=== PATIENT | female | born 1995 | race Two or more races ===

== ENCOUNTER → 2019-06-21 | Outpatient (REF) | payer OTHER | LOC: M SFHCLERA 12:56 | PROVIDERS: ATTEND Nurse Practitioner Family | DX: J02.9 Acute pharyngitis, unspecified (principal) ==

== ENCOUNTER 2019-08-11 16:18 | Inpatient (IN) | payer OTHER ==
[2019-08-11] VITALS (7 sets, daily range): BP systolic 120–148; BP diastolic 65–86
[~2019-08-11] VITALS: Ht 170.2 cm; Wt 92.8 kg
[2019-08-11] MEDS ORDERED: PRENTAB9 PO (16:37)
[2019-08-11] MEDS ORDERED: OXYTOCIN 30 UNITS IN 0.9% NaCl 500ML IV BAG (J2590) As Ordered ONE (16:51)
[2019-08-11] MEDS ORDERED: OXYTOCIN DRIP 30 UNITS in IV 1 EA IV SCH (17:20)
--- NOTE | 2019-08-11 17:28 | DNPDOC ---
[facility] Delivery Note Delivery Note DATE OF DELIVERY: 11 August 2019 PREDELIVERY DIAGNOSIS: 38w6d in active labor with history of prior section POST DELIVERY DIAGNOSIS: Delivered. PROCEDURE: vaginal after prior section PHYSIOLOGY TEACHER: Dr. Arianna Valentin MD ANESTHESIA: none ESTIMATED BLOOD LOSS: 200 mL. FINDINGS: 8 pound 11 ounce (3950g) male infant, Score 8/9, nuchal cord times 1 DELIVERY SUMMARY: Yudelka is a 24yo [id number] s/p uncomplicated at 1655 on 08/11/2019 after presenting at 9cm at 38w6d. AROM was performed with clear fluid noted, and patient then began pushing within 2 more contractions. 's head delivered OA, restituted MIKE. One nuchal cord reduced. Right anterior shoulder delivered followed by posterior shoulder and corpus. Infant was vigorous with spontaneous cry, placed on maternal abdomen and cord was clamped x2 and cut by FOB after approximately 2 minutes. Infant's nose and mouth were suctioned with bulb suction. Apgars 8/9. With traction on the umbilical cord and uterine massage, placenta delivered spontaneously and intact with 3 vessel centrally inserted cord. There were some trailing membranes that were slowly teased out with ring forceps and were removed intact. More uterine massage was performed and fundus was then firm at u-2cm. Inspection of perineum and vagina revealed small eufemia at the vaginal introitus at 6 o'clock, reapproximated with 4-0 vicryl in a figure of 8. Total hemostasis noted. All counts correct x2. Mom and infant were doing well when I left the room. MD Homero Elizondo Katrina D MD Aug 11, 2019 17:24
[2019-08-11] MEDS ORDERED: IBUPROFEN 800 MG TAB PO PRN (17:30)
[2019-08-11] MEDS ORDERED: ACETAMINOPHEN TAB 650MG DOSE (2X325MG) PO PRN (17:30)
[2019-08-11] MEDS ORDERED: RHOGAM 300 MCG (1500 IU) INJ (J2790) IM SCH (17:30)
[2019-08-11] MEDS ORDERED: DOCUSATE SODIUM 100 MG CAP PO PRN (17:30)
[2019-08-11] MEDS ORDERED: IBUPROFEN 600 MG TAB PO PRN (17:30)
[2019-08-11] MEDS ORDERED: ACETAMINOPHEN 500 MG TAB PO PRN (17:30)
[2019-08-11] MEDS ORDERED: MEASLES,MUMPS,RUBELLA VACCINE INJ (MMR-II) (90707) SC SCH (17:30)
[2019-08-11] MEDS ORDERED: DIBUCAINE 1% OINTMENT 30GM TOP PRN (17:30)
--- NOTE | 2019-08-11 17:43 | HPEPDOC ---
Obstetrical History & Physical General Date of Admission Aug 11, 2019 at 16:51 History of Present Illness Yudelka is a 24yo with SIUP at 38w6d by lmp c/w 9wk u/s presenting after sunday all last night and today. She states ctx became much stronger and closer over the past couple hours. Good movement. No LOF. No vaginal bleeding. Chief Complaint: Contractions, term Information Provided By: Patient Care Care: Good Care Dating Final EDC by: LMP, 1st trimester (US) Antepartum Course Diagnos(e)s hx of section in 2016 followed by successful 2018, excessive weight gain 58lb Height (inches): 67 Pre- weight (lbs.): 145 Admission Weight (lbs.): 203 Change in Weight (lbs.): 58 Past Medical History Past Obstetrical History : Past Obstetrical History: Multigravida (2016 PLTCS at 40wk for arrest of descent 8lb4oz F, 2018 at 39wk 6ib33um F) MANAGER WIND History: No pertinent history Past Medical History Medical History Benign Surgical History: section, Tonsilectomy, [place] teeth Family History Significant Family History: No pertinent family hx Social History Marital Status: Family situation: Spouse/partner home Psychosocial History: No pertinent psych hx * Smoker: non-smoker Alcohol: Denies Drugs: denies Imunizations Tdap status: current Influenza Status: current Allergies Coded Allergies: No Known Allergies (Unverified , 08/11/19) Medications Scheduled No.137/Iron/Folic Acd ( Vitamin Tablet) 1 Each Tablet, 1 TAB PO DAILY Physical Examination Physical Examination GENERAL: Alert and oriented times three. ABDOMEN: Gravid and non-tender to touch. FETUS: Is vertex (VTX) by sterile vaginal examination (SVE) EXTREMITIES: No edema Vital Signs/I&O Vital Signs Date Time Temp Pulse Resp B/P (MAP) Pulse Ox O2 Delivery O2 Flow Rate FiO2 08/11/19 16:31 99.6 100 18 132/75 (94) 99.6 Laboratory Data 24H LABS Laboratory Tests 2 08/11/19 16:54: Serology Scanned Report Hepatitis B Testing Pertinent Laboratoy Data Blood Type: A+ RBC Antibody Screen: Negative HIV: Negative Hepatitis B: Negative Rapid Plasma Reagin: Nonreactive Rubella: Immune Varicella: Immune Chlamydia/Gonorrhea: Negative Group B Streptococcus: Negative Quad Screen Test: Negative ([id number] wnl ) Glucose Tolerance Test: 122 Anatomy Ultrasound Ultrasound Date: Apr 03, 2019 Normal Anatomy: Yes Placenta Previa: No Steroid Therapy Steroid Therapy: No Vaginal Examination Dilation: 9 cm Effacement: 100% Station: -2 Cervical Consistency: Soft Cervical Position: Anterior Presentation: Cephalic presentation Assessment Heart Rate (FHR): 130 Variability: Moderate Accelerations: Positive Decelerations: None Tocometer Contractions: Yes Frequency: regular Duration: less than 60 seconds Strength: palpated as strong Assessment/Plan Assessment Yudelka is a 24yo with SIUP at 38w6d by lmp c/w 9wk u/s in active labor w/SCE 9/C/-2. AROM performed with first exam, clear fluid noted. Reassuring status. Ctx q2-3min. Vitals wnl, benign exam. GBS negative. course/PMhx significant for hx of section in 2016 followed by successful 2018, excessive weight gain 58lb Plan Admit and orient. Java Developer Consultant and consent. Patient has prior successful and desires another vaginal delivery. Previously counseled on r/b/a. Diet: clear liquids Group B Streptococcus (GBS) negative Labs and intravenous (IV) per unit protocol. Anticipate normal spontaneous delivery () MD Homero Elizondo Katrina D MD Aug 11, 2019 17:43
[2019-08-11 18:26] LABS: HEMATOCRIT 42.2 % (36.0-47.0); MEAN CORPUSCULAR HEMOGLOBIN 32.8 pg (27.0-33.0); MEAN CORPUSCULAR HGB CONC 33.2 g/dl (32.0-36.5); MEAN CORPUSCULAR VOLUME 98.8 fl (80.0-96.0); PLATELET COUNT, AUTOMATED 150 10^3/uL (150-450); RED BLOOD COUNT 4.27 10^6/uL (4.00-5.40)
[2019-08-12 05:33] VITALS: BP 118/68
[2019-08-12] MEDS ORDERED: PRENATAL VITAMINS CHEWABLE TABLET PO SCH (09:00)
--- NOTE | 2019-08-12 10:32 | IPNPDOC ---
Progress Note Date of Service: Aug 12, 2019 Day#: 1 Progress Note PPD 1 SUBJECT: Yudelka is a 24yo [id number] s/p uncomplicated after presenting at 9cm dilation, doing well day # 1. She has been ambulating, voiding spontaneously without issue and tolerating regular diet. Breast feeding without issue. Reports lochia is like a normal period. No f/c/n/v/CP/SOB. OBJECTIVE: VITAL SIGNS: Within normal limits, afebrile. Alert and oriented times three. Abdomen: Fundus firm at U-2. Soft, NTTP. Extremities: no pain with palpation of calves ASSESSMENT: Yudelka is a 24yo [id number] s/p uncomplicated after presenting at 9cm dilation, doing well day # 1. Vitals within normal limits, afebrile, hemodynamically stable with no evidence of infection. PLAN: 1. Discharge to home today. 2. Tylenol and Motrin for pain. 3. Encourage breast feeding and ambulation. 4. Minipill for contraception, already prescribed 5. Routine PP visit in 6 weeks in clinic. 6. Discussed return precautions at length. Dr. Arianna Valentin MD VS, I&O, 24H, Fishbone Vital Signs/I&O Vital Signs Date Time Temp Pulse Resp B/P (MAP) Pulse Ox O2 Delivery O2 Flow Rate FiO2 08/12/19 05:33 98.5 54 16 118/68 (85) 97 Room Air 98.5 I&O- Last 24 Hours up to 6 AM 08/12/19 06:00 Intake Total 500 ml Output Total 600 ml Balance -100 ml Laboratory Data 24H LABS Laboratory Tests 2 08/11/19 16:54: Serology Scanned Report Hepatitis B Testing 08/11/19 16:59: Nucleated Red Blood Cells % (auto) 0.0 CBC/BMP Laboratory Tests 08/11/19 16:59 Arianna Valentin MD Aug 12, 2019 10:32
[2019-08-12] MEDS ORDERED: IBUP80TA PO (10:34)
[2019-08-12] MEDS ORDERED: ACET-683 PO (10:34)
[2019-08-12] MEDS ORDERED: DOCU100C16 PO (10:34)
--- NOTE | 2019-08-12 10:37 | DS.PDOC ---
Discharge Summary General Date of Admission Aug 11, 2019 at 16:51 Date of Discharge Aug 12, 2019 Attending Physician: Arianna Valentin MD Discharge Summary PROCEDURES PERFORMED DURING STAY: ADMITTING DIAGNOSES: 1. active labor DISCHARGE DIAGNOSES: 1. active labor, delivered by COMPLICATIONS/CHIEF COMPLAINT: Labor Check. HISTORY OF PRESENT ILLNESS/HOSPITAL COURSE: Yudelka is a 24yo [id number] s/p uncomplicated after presenting at 9cm dilation, doing well day # 1. course benign. At time of discharge, vitals within normal limits, afebrile, hemodynamically stable with no evidence of infection. DISCHARGE MEDICATIONS: Please see below. ALLERGIES: Please see below. PHYSICAL EXAMINATION ON DISCHARGE: VITAL SIGNS: Within normal limits, afebrile. Alert and oriented times three. Abdomen: Fundus firm at U-2. Soft, NTTP. Extremities: no pain with palpation of calves LABORATORY DATA: Please see below. DIET: regular DISPOSITION: Home DISCHARGE PLAN/INSTRUCTIONS: 1. Discharge to home today. 2. Tylenol and Motrin for pain. 3. Encourage breast feeding and ambulation. 4. Minipill for contraception, already prescribed 5. Routine PP visit in 6 weeks in clinic. 6. Discussed return precautions at length. DISCHARGE CONDITION: Stable TIME SPENT ON DISCHARGE: Greater than [address] Arianna Valentin MD Vital Signs/I&Os Vital Signs Date Time Temp Pulse Resp B/P (MAP) Pulse Ox O2 Delivery O2 Flow Rate FiO2 08/12/19 05:33 98.5 54 16 118/68 (85) 97 Room Air 98.5 I&O- Last 24 Hours up to 6 AM 08/12/19 06:00 Intake Total 500 ml Output Total 600 ml Balance -100 ml Laboratory Data Labs 24H Laboratory Tests 2 08/11/19 16:54: Serology Scanned Report Hepatitis B Testing 08/11/19 16:59: Nucleated Red Blood Cells % (auto) 0.0 CBC/BMP Laboratory Tests 08/11/19 16:59 Discharge Medications Scheduled No.137/Iron/Folic Acd ( Vitamin Tablet) 1 Each Tablet, 1 TAB PO DAILY, (Reported) Scheduled PRN Acetaminophen (Acetaminophen) 500 Mg Tablet, 1,000 MG PO Q6HP PRN for PAIN LEVEL 6-10 Docusate Sodium (Docusate Sodium) 100 Mg Capsule, 100 MG PO QHSP PRN for CONSTIPATION Ibuprofen (Ibuprofen) 800 Mg Tablet, 800 MG PO Q8HP PRN for PAIN LEVEL 6-10 Allergies Coded Allergies: No Known Allergies (Unverified , 08/11/19) Arianna Valentin MD Aug 12, 2019 10:37
== END 2019-08-12 16:55 | disposition home or self-care (01) | DRG 807 ==
LOC: M LDO 16:18 → M LDI 16:51 → M OBS 20:11
PROVIDERS: ADMIT Obstetrics & Gynecology; ATTEND Obstetrics & Gynecology
PROC: 10E0XZZ Delivery of Products of Conception, External Approach (ICD-10-PCS; principal; 2019-08-11)
PROC: 10907ZC Drainage of Amniotic Fluid, Therapeutic from Products of Conception, Via Natural or Artificial Opening (ICD-10-PCS; 2019-08-11)
DX: O34.211 Maternal care for low transverse scar from previous cesarean delivery (principal); Z37.0 Single live birth; Z3A.38 38 weeks gestation of pregnancy; O73.1 Retained portions of placenta and membranes, without hemorrhage; O69.81X0 Labor and delivery complicated by cord around neck, without compression, not applicable or unspecified